=== PATIENT | female | born 1970 | race Caucasian/White ===

== ENCOUNTER 2016-04-17 15:39 | Emergency (ER) | payer OTHER ==
[2016-04-17] MEDS ORDERED: DIPHTH,PERTUSS(ACELL),TET VAC 0.5 ML VIAL IM V ONE (16:22)
== END 2016-04-17 16:37 | disposition home or self-care (01) ==
LOC: ED 15:39
DX: S00.31XA Abrasion of nose, initial encounter (principal); G10 Huntington's disease; Z85.9 Personal history of malignant neoplasm, unspecified; X58.XXXA Exposure to other specified factors, initial encounter; Y93.29 Activity, other involving ice and snow